=== PATIENT | male | born 1990 | race Caucasian/White ===

== ENCOUNTER 2016-08-14 10:59 | Emergency (ER) ==
[2016-08-14 12:52] LABS: MANUAL DIFF NEEDED? NO; URINE CULTURE NEEDED? NO; URINE MICRO REVIEW NEEDED? NO; URINE SOURCE CLEAN CATCH
[2016-08-14 13:05] LABS: BILIRUBIN URINE NEGATIVE (NEGATIVE); BLOOD URINE NEGATIVE (NEGATIVE); COLOR YELLOW; GLUCOSE URINE NEGATIVE (NEGATIVE); LEUKOCYTES URINE NEGATIVE (NEGATIVE); NITRITE URINE NEGATIVE (NEGATIVE); PH URINE 5.5; PROTEIN URINE TRACE mg/dL (NEGATIVE); SP GRAVITY URINE 1.021; TURBIDITY URINE CLEAR (CLEAR); UROBILINOGEN URINE NORMAL (NORMAL)
[2016-08-14 13:06] LABS: BASO% 0.1 % (0.0-0.8); HEMATOCRIT 36.8 % (42.0-52.0); HEMOGLOBIN 12.6 g/dL (14.0-18.0); LYMPH% 20.1 % (20.5-51.1); MCH 28.3 PG (27-31); MCHC 34.2 g/dL (33-37); MCV 82.5 FL (81-99); MONO# 0.83 X1000 (0.11-0.59); MONO% 11.9 % (1.7-9.3); MPV 10.3 FL (7.4-10.4); NEUT% 67.9 % (42.2-75.2); PLT 184 X1000 (130-400); RBC 4.46 XMIL (4.7-6.1); UR EPITHELIAL CELLS <10 /HPF (<10); URINE BACTERIA NEGATIVE /HPF; URINE RBC <10 /HPF (<10); URINE WBC <10 /HPF (<10)
--- NOTE | 2016-08-14 13:11 | PROVIDER DOCUMENTATION ---
HPI-Abdominal Pain/GI Problem - General Source: patient - History of Present Illness-ABD Abdominal Pain Onset Location: reports: other (no abd pain) Quality of Pain: reports: none Severity in ED: reports: mild Onset/Duration: reports: other (0400 yesterday am) Timing: reports: intermittent Bruising or Bleeding Gums?: No Similar Symptoms Previously?: No Recently seen or treated by another doctor?: No <Kai Rebolledo - Last Filed: 08/14/16 13:12> <Sebastian Palafox - Last Filed: 08/14/16 15:31> - General Chief Complaint: Vomiting Stated Complaint: VOMITING Time Seen by Provider: 08/14/16 13:12 Allergies/Adverse Reactions: Patient Allergies Allergy/AdvReac Type Severity Reaction Status Date / Time No Known Allergies Allergy Verified 08/14/16 13:38 Home Medications: Hydrocortisone 5 mg PO HS 08/14/16 Hydrocortisone 10 mg PO DAILY 08/14/16 Hydrocortisone Sod Succinate [Solu-Cortef] 100 mg IM DIRECTED 08/14/16 Levothyroxine [Synthroid] 112 microgm PO DAILY 08/14/16 Testosterone [Androgel] 5 gm TD HS 08/14/16 - History of Present Illness-ABD Nature of Presenting Problems: 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 reports was treated for Staff infection in nose recently came off antibiotics reports has had nausea and vomiting with intermittent fever x 3 days with generalized weakness. Vomiting started yesterday at 0400 in the morning. No sick contacts. (Kai Rebolledo) Review of Systems - Adult - REVIEW OF SYSTEMS - ADULT Constitutional: reports: fever, fatique. denies: chills, weight gain, weight loss Eyes: reports: no symptoms reported Ears, Nose, Mouth & Throat: reports: no symptoms reported Cardiovascular: denies: chest pain, irregular heart rate, orthopnea, syncope Respiratory: reports: no symptoms reported Gastrointestinal: reports: nausea, poor appetite, vomiting. denies: abdominal pain, diarrhea, difficulty swallowing, frequent heartburn Genitourinary: reports: no symptoms reported Musculoskeletal: reports: no symptoms reported Integumentary: reports: no symptoms reported Neurological: reports: no symptoms reported Psychiatric: reports: no symptoms reported Endocrine: reports: no symptoms reported Hematologic/Lymphatic: reports: no symptoms reported Allergic/Immunologic: reports: no symptoms reported All Other Systems: Reviewed and Negative <RebolledoKai - Last Filed: 08/14/16 13:12> Past History - Adult - PAST MEDICAL HISTORY-ADULT Review of Records: reports: Nursing Assessment Review, Medications Reviewed Major Childhood Illnesses: reports: denies history Cardiovascular: reports: denies history - PRIOR SURGERIES/PROCEDURES Surgical/Procedure History: reports: other (pituatary tumor removal) - IMMUNIZATION STATUS Childhood Immunizations: See Nurse Assessment Flu Vaccine: See Nurse Assessment - FAMILY HISTORY Family History: reviewed, not pertinent - SOCIAL HISTORY Smoking: denies Substance Use: none/never <Kai Rebolledo - Last Filed: 08/14/16 13:12> Physical Exam-General - PHYSICAL EXAM-ADULT Initial Vital Signs Reviewed: Yes - CONSTITUTIONAL General Appearance: alert, no apparent distress. negative: appears well - EYES Eyes: PERRL/EOMI - HEAD, EARS, NOSE, MOUTH & THROAT HENMT: normocephalic/atraumatic, TMs normal, other (pustular pockets on pharynx) . negative: moist mucous membranes (dry) - NECK Neck: non-tender, full range of motion, supple - RESPIRATORY Respiratory: chest non-tender, lungs clear, normal breath sounds, no pleuratic chest pain, no respiratory distress, no accessory muscle use - CARDIOVASCULAR Cardiovascular: normal peripheral pulses, no edema, no gallop, no JVD, no murmur , tachycardia - GASTROINTESTINAL (ABDOMEN) Abdominal Exam: normal bowel sounds, non tender, soft, no organomegaly, no pulsatile mass - MUSCULOSKELETAL Back Exam: normal inspection Extremity: normal range of motion, non-tender - SKIN Integumentary: warm/dry, pallor - PSYCHIATRIC Psych/Mental Status: normal mood/affect, normal thought content, normal thought process, oriented x 3 <Kai Rebolledo - Last Filed: 08/14/16 13:12> Progress <Kai Rebolledo - Last Filed: 08/14/16 13:12> - XRAY 1 XRAY Study: Chest XRAY Interpretation: nad <Sebastian Palafox - Last Filed: 08/14/16 15:31> - PLAN OF CARE/RESULTS Progress/Plan/Lab Results: Orders Category Date Time Status Saline Loc DIRECTED Care 08/14/16 11:14 Active NPO Diet 08/14/16 11:14 Active CHEST-2 VIEWS [RAD] Stat Exams 08/14/16 13:13 Ordered AMYLASE [CHEM] Stat Lab 08/14/16 11:19 Received CBC WITH ELECTRONIC DIFF [HEME] Stat Lab 08/14/16 11:19 Completed COMPREHENSIVE METABOLIC PANEL [CHEM] Stat Lab 08/14/16 11:19 Received DIRECT STREP Stat Lab 08/14/16 13:13 Uncollected INFLUENZA SCREEN A/B Stat Lab 08/14/16 13:13 Uncollected LIPASE [CHEM] Stat Lab 08/14/16 11:19 Received URINALYSIS W/POSS RFLX CULT [URINALYSIS] Stat Lab 08/14/16 11:19 Completed 0.9% Sodium Chloride Inj [Ns] 1,000 ml Med 08/14/16 13:13 Active IV 999 mls/hr Ibuprofen [Motrin] Med 08/14/16 13:13 Discontinued 800 mg PO NOW ONE Ondansetron [Zofran] Med 08/14/16 13:13 Discontinued 4 mg IV NOW ONE Vital Signs - 24 hr 08/14/16 11:11 Temperature 100.0 F H Pulse Rate 116 H Respiratory 20 Rate Blood Pressure 126/69 O2 Sat by Pulse 100 Oximetry (Kai Rebolledo) Laboratory Tests 08/14/16 08/14/16 08/14/16 11:19 11:19 11:19 WBC 6.98 RBC 4.46 L Hgb 12.6 L Hct 36.8 L MCV 82.5 MCH 28.3 MCHC 34.2 RDW Std Deviation 13.7 Plt Count 184 MPV 10.3 Immature Gran % (Auto) 0.0 Neut % (Auto) 67.9 Lymph % (Auto) 20.1 L [place] % (Auto) 11.9 H Eos % (Auto) 0.0 Baso % (Auto) 0.1 Immature Gran # (Auto) 0.00 Neut # (Auto) 4.74 Lymph # (Auto) 1.40 [place] # (Auto) 0.83 H Eos # (Auto) 0.00 Baso # (Auto) 0.01 Sodium 131 L Potassium 3.8 Chloride 96 L Carbon Dioxide 20 L Anion Gap 15 BUN 17 Creatinine 0.9 Estimated GFR/1.73 m2 > 60 BUN/Creatinine Ratio 19 Glucose 60 L Calculated Osmolality 262 Calcium 8.8 Total Bilirubin 0.91 AST 17 ALT 10 Alkaline Phosphatase 65 Total Protein 7.1 Albumin 4.2 Globulin 2.9 Albumin/Globulin Ratio 1.4 Amylase 61 Lipase 27 TSH Free T4 Urine Source CLEAN CATCH Urine Color YELLOW Urine Turbidity CLEAR Urine pH 5.5 Ur Specific [place] 1.021 Urine Protein TRACE A Ur Glucose (Stick) NEGATIVE Ur Ketones (Stick) 10 A Urine Blood NEGATIVE Urine Nitrite NEGATIVE Urine Bilirubin NEGATIVE Urobilinogen Dipstick NORMAL Urine Leukocytes NEGATIVE Urine WBC (Auto) <10 Urine RBC (Auto) <10 U Epithel Cells (Auto) <10 Urine Bacteria (Auto) NEGATIVE 08/14/16 11:19 WBC RBC Hgb Hct MCV MCH MCHC RDW Std Deviation Plt Count MPV Immature Gran % (Auto) Neut % (Auto) Lymph % (Auto) [place] % (Auto) Eos % (Auto) Baso % (Auto) Immature Gran # (Auto) Neut # (Auto) Lymph # (Auto) [place] # (Auto) Eos # (Auto) Baso # (Auto) Sodium Potassium Chloride Carbon Dioxide Anion Gap BUN Creatinine Estimated GFR/1.73 m2 BUN/Creatinine Ratio Glucose Calculated Osmolality Calcium Total Bilirubin AST ALT Alkaline Phosphatase Total Protein Albumin Globulin Albumin/Globulin Ratio Amylase Lipase TSH 0.04 L Free T4 1.88 H Urine Source Urine Color Urine Turbidity Urine pH Ur Specific [place] Urine Protein Ur Glucose (Stick) Ur Ketones (Stick) Urine Blood Urine Nitrite Urine Bilirubin Urobilinogen Dipstick Urine Leukocytes Urine WBC (Auto) Urine RBC (Auto) U Epithel Cells (Auto) Urine Bacteria (Auto) Orders Category Date Time Status FSBS/Accucheck Result NOW Care 08/14/16 14:28 Active Saline Loc DIRECTED Care 08/14/16 11:14 Active NPO Diet 08/14/16 11:14 Active CHEST-2 VIEWS [RAD] Stat Exams 08/14/16 13:13 Draft AMYLASE [CHEM] Stat Lab 08/14/16 11:19 Completed CBC WITH ELECTRONIC DIFF [HEME] Stat Lab 08/14/16 11:19 Completed COMPREHENSIVE METABOLIC PANEL [CHEM] Stat Lab 08/14/16 11:19 Completed DIRECT STREP Stat Lab 08/14/16 13:15 Completed FREE T4 Stat Lab 08/14/16 11:19 Completed INFLUENZA SCREEN A/B Stat Lab 08/14/16 13:15 Completed LIPASE [CHEM] Stat Lab 08/14/16 11:19 Completed TSH Stat Lab 08/14/16 11:19 Completed URINALYSIS W/POSS RFLX CULT [URINALYSIS] Stat Lab 08/14/16 11:19 Completed 0.9% Sodium Chloride Inj [Ns] 1,000 ml Med 08/14/16 13:13 Discontinued IV 999 mls/hr Ibuprofen [Motrin] Med 08/14/16 13:13 Discontinued 800 mg PO NOW ONE Ondansetron [Zofran] Med 08/14/16 13:13 Discontinued 4 mg IV NOW ONE Vital Signs Temp Pulse Resp BP Pulse Ox 08/14/16 11:11 100.0 F H 116 H 20 126/69 100 No Known Allergies Allergy (Verified 08/14/16 13:38) Hydrocortisone 5 mg PO HS 08/14/16 Hydrocortisone 10 mg PO DAILY 08/14/16 Hydrocortisone Sod Succinate [Solu-Cortef] 100 mg IM DIRECTED 08/14/16 Levothyroxine [Synthroid] 112 microgm PO DAILY 08/14/16 Testosterone [Androgel] 5 gm TD HS 08/14/16 Dietary Diet NPO Start SatAug 14 111 Laboratory 08/14/16 08/14/16 08/14/16 11:19 11:19 11:19 WBC 6.98 RBC 4.46 L Hgb 12.6 L Hct 36.8 L MCV 82.5 MCH 28.3 MCHC 34.2 RDW Std Deviation 13.7 Plt Count 184 MPV 10.3 Immature Gran % (Auto) 0.0 Neut % (Auto) 67.9 Lymph % (Auto) 20.1 L [place] % (Auto) 11.9 H Eos % (Auto) 0.0 Baso % (Auto) 0.1 Immature Gran # (Auto) 0.00 Neut # (Auto) 4.74 Lymph # (Auto) 1.40 [place] # (Auto) 0.83 H Eos # (Auto) 0.00 Baso # (Auto) 0.01 Sodium Potassium Chloride Carbon Dioxide Anion Gap BUN Creatinine Estimated GFR/1.73 m2 BUN/Creatinine Ratio Glucose Calculated Osmolality Calcium Total Bilirubin AST ALT Alkaline Phosphatase Total Protein Albumin Globulin Albumin/Globulin Ratio Amylase Lipase TSH 0.04 L Free T4 1.88 H Urine Source CLEAN CATCH Urine Color YELLOW Urine Turbidity CLEAR Urine pH 5.5 Ur Specific [place] 1.021 Urine Protein TRACE A Ur Glucose (Stick) NEGATIVE Ur Ketones (Stick) 10 A Urine Blood NEGATIVE Urine Nitrite NEGATIVE Urine Bilirubin NEGATIVE Urobilinogen Dipstick NORMAL Urine Leukocytes NEGATIVE Urine WBC (Auto) <10 Urine RBC (Auto) <10 U Epithel Cells (Auto) <10 Urine Bacteria (Auto) NEGATIVE 08/14/16 11:19 WBC RBC Hgb Hct MCV MCH MCHC RDW Std Deviation Plt Count MPV Immature Gran % (Auto) Neut % (Auto) Lymph % (Auto) [place] % (Auto) Eos % (Auto) Baso % (Auto) Immature Gran # (Auto) Neut # (Auto) Lymph # (Auto) [place] # (Auto) Eos # (Auto) Baso # (Auto) Sodium 131 L Potassium 3.8 Chloride 96 L Carbon Dioxide 20 L Anion Gap 15 BUN 17 Creatinine 0.9 Estimated GFR/1.73 m2 > 60 BUN/Creatinine Ratio 19 Glucose 60 L Calculated Osmolality 262 Calcium 8.8 Total Bilirubin 0.91 AST 17 ALT 10 Alkaline Phosphatase 65 Total Protein 7.1 Albumin 4.2 Globulin 2.9 Albumin/Globulin Ratio 1.4 Amylase 61 Lipase 27 TSH Free T4 Urine Source Urine Color Urine Turbidity Urine pH Ur Specific [place] Urine Protein Ur Glucose (Stick) Ur Ketones (Stick) Urine Blood Urine Nitrite Urine Bilirubin Urobilinogen Dipstick Urine Leukocytes Urine WBC (Auto) Urine RBC (Auto) U Epithel Cells (Auto) Urine Bacteria (Auto) Pt is feeling much better. After receiving fluids and medications he took he was able to take his daily thyroid medication as scheduled and is now tolerating PO fluids and foods. POC glucose is now >100. He would like to go home and f/u c his certified breastfeeding educator at [facility]. Will tx for pharyngitis. Vital Signs Temp Pulse Resp BP Pulse Ox 08/14/16 15:28 98.2 F 85 18 112/52 99 08/14/16 11:11 100.0 F H 116 H 20 126/69 100 No Known Allergies Allergy (Verified 08/14/16 13:38) Hydrocortisone 5 mg PO HS 08/14/16 Hydrocortisone 10 mg PO DAILY 08/14/16 Hydrocortisone Sod Succinate [Solu-Cortef] 100 mg IM DIRECTED 08/14/16 Levothyroxine [Synthroid] 112 microgm PO DAILY 08/14/16 Testosterone [Androgel] 5 gm TD HS 08/14/16 Dietary Diet NPO Start SatAug 14 1114 Laboratory 08/14/16 08/14/16 08/14/16 11:19 11:19 11:19 WBC 6.98 RBC 4.46 L Hgb 12.6 L Hct 36.8 L MCV 82.5 MCH 28.3 MCHC 34.2 RDW Std Deviation 13.7 Plt Count 184 MPV 10.3 Immature Gran % (Auto) 0.0 Neut % (Auto) 67.9 Lymph % (Auto) 20.1 L [place] % (Auto) 11.9 H Eos % (Auto) 0.0 Baso % (Auto) 0.1 Immature Gran # (Auto) 0.00 Neut # (Auto) 4.74 Lymph # (Auto) 1.40 [place] # (Auto) 0.83 H Eos # (Auto) 0.00 Baso # (Auto) 0.01 Sodium Potassium Chloride Carbon Dioxide Anion Gap BUN Creatinine Estimated GFR/1.73 m2 BUN/Creatinine Ratio Glucose Calculated Osmolality Calcium Total Bilirubin AST ALT Alkaline Phosphatase Total Protein Albumin Globulin Albumin/Globulin Ratio Amylase Lipase TSH 0.04 L Free T4 1.88 H Urine Source CLEAN CATCH Urine Color YELLOW Urine Turbidity CLEAR Urine pH 5.5 Ur Specific [place] 1.021 Urine Protein TRACE A Ur Glucose (Stick) NEGATIVE Ur Ketones (Stick) 10 A Urine Blood NEGATIVE Urine Nitrite NEGATIVE Urine Bilirubin NEGATIVE Urobilinogen Dipstick NORMAL Urine Leukocytes NEGATIVE Urine WBC (Auto) <10 Urine RBC (Auto) <10 U Epithel Cells (Auto) <10 Urine Bacteria (Auto) NEGATIVE 08/14/16 11:19 WBC RBC Hgb Hct MCV MCH MCHC RDW Std Deviation Plt Count MPV Immature Gran % (Auto) Neut % (Auto) Lymph % (Auto) [place] % (Auto) Eos % (Auto) Baso % (Auto) Immature Gran # (Auto) Neut # (Auto) Lymph # (Auto) [place] # (Auto) Eos # (Auto) Baso # (Auto) Sodium 131 L Potassium 3.8 Chloride 96 L Carbon Dioxide 20 L Anion Gap 15 BUN 17 Creatinine 0.9 Estimated GFR/1.73 m2 > 60 BUN/Creatinine Ratio 19 Glucose 60 L Calculated Osmolality 262 Calcium 8.8 Total Bilirubin 0.91 AST 17 ALT 10 Alkaline Phosphatase 65 Total Protein 7.1 Albumin 4.2 Globulin 2.9 Albumin/Globulin Ratio 1.4 Amylase 61 Lipase 27 TSH Free T4 Urine Source Urine Color Urine Turbidity Urine pH Ur Specific [place] Urine Protein Ur Glucose (Stick) Ur Ketones (Stick) Urine Blood Urine Nitrite Urine Bilirubin Urobilinogen Dipstick Urine Leukocytes Urine WBC (Auto) Urine RBC (Auto) U Epithel Cells (Auto) Urine Bacteria (Auto) (Sebastian Palafox Billy) Departure <Kai Rebolledo - Last Filed: 08/14/16 13:12> - Departure Time of Disposition Order: 15:30 Certified Medical Emergency: Emergent <Sebastian Palafox - Last Filed: 08/14/16 15:31> - Departure DIAGNOSIS: Hypoglycemia Pharyngitis Qualifiers: Pharyngitis/tonsillitis etiology: unspecified etiology Qualified Code(s): J02.9 - Acute pharyngitis, unspecified Nausea & vomiting Qualifiers: Vomiting type: unspecified Vomiting Intractability: non-intractable Qualified Code(s): R11.2 - Nausea with vomiting, unspecified Disposition: HOME 01 Condition: Good Additional Instructions: Take medication as prescribed. Stay well hydrated and do not skip meals. Follow up with your certified breastfeeding educator. Return to the ER for any new or worsening symptoms. ED Follow Up Instructions: You have been treated by a care provider in the Emergency Department. These instructions are being provided to you so you can have an understanding of how to care for yourself upon discharge. Upon discharge from the Emergency Department, you are responsible for making arrangements for follow-up care by a physician of your choice. Take all prescribed medications as directed. Return to the Emergency Department immediately for any new or worsening symptoms. You may call the Physician Referral phone number at [phone] to obtain a list of Physicians who are taking new patients. Prescriptions: Amoxicillin [Amoxil] 500 mg PO BID #10 capsule Ondansetron Odt [Zofran 4 mg Odt] 4 mg PO Q6H PRN PRN #20 tablet PRN Reason: Nausea Attestation - Scribe Verification/Attestation Scribe:: Kai Rebolledo Acting as Scribe for:: Sebastian Palafox Scribe documention review:: This chart was documented by a scribe and accurately reflects the service the provider performed and the decisions made by the provider. <Kai Rebolledo - Last Filed: 08/14/16 13:12> - Physician/ Mid-level Attestation Patient care was provided by Mid-level provider (LIFE TEACHER/PA):: Yes Mid-level provider:: Sebastian Palafox Mid-level documentation review:: The Mid-level provider documentation, treatment plan and medical decision making was reviewed by the physician who agrees with all treatment and medical decision making by the MLP. <Sebastian Palafox - Last Filed: 08/14/16 15:31> Physician Attestation
[2016-08-14] MEDS ORDERED: ZOFRAN IV ONE (13:13)
[2016-08-14] MEDS ORDERED: NS 1,000 ML IV ONE (13:13)
[2016-08-14] MEDS ORDERED: MOTRIN PO ONE (13:13)
[2016-08-14 13:18] LABS: AGAP 15; ALBUMIN 4.2 g/dL (3.5-5.0); ALKALINE PHOSPHATASE 65 U/L (32-122); AMYLASE 61 U/L (20-200); BUN 17 mg/dL (8-22); CALCIUM 8.8 mg/dL (8.8-10.2); CHLORIDE 96 mmol/L (98-107); COSMO 262; GOT 17 U/L (10-34); GPT 10 U/L (10-44); LIPASE 27 U/L (13-60); POTASSIUM 3.8 mmol/L (3.5-5.1); SODIUM 131 mmol/L (136-145); TCO2 20 mmol/L (25-35); TOTAL BILIRUBIN 0.91 mg/dL (0.20-1.00); TOTAL PROTEIN 7.1 g/dL (6.3-8.3)
[2016-08-14 15:00] LABS: FREE T4 1.88 ng/dL (0.93-1.70)
--- NOTE | 2016-08-14 15:02 | Diag Imaging Result Document ---
PROCEDURE NAME: CHEST-2 VIEWS - 08/14/2016 PA AND LATERAL RADIOGRAPH OF THE CHEST: COMPARISON: None available. FINDINGS: The lungs are grossly clear. There is no discrete pleural fluid collection or evidence of pneumothorax. The cardiomediastinal silhouette and upper airway are grossly unremarkable. IMPRESSION: No evidence of acute chest pathology.
[2016-08-14 15:30] VITALS: BP 112/52
== END 2016-08-14 15:39 | disposition home or self-care (01) ==
LOC: ED 10:59
DX: E16.2 Hypoglycemia, unspecified (principal); R11.2 Nausea with vomiting, unspecified; J02.9 Acute pharyngitis, unspecified; D49.7 Neoplasm of unspecified behavior of endocrine glands and other parts of nervous system; R50.9 Fever, unspecified; R53.83 Other fatigue; Z79.899 Other long term (current) drug therapy
CPT/HCPCS: 71020; 80053; 81001; 82150; 82948; 83690; 84439; 84443; 85025; 87081; 87430; 87804; 96361; 96374; J2405; J7030